=== PATIENT | female | born 1990 | race American Indian/Alaskan Native ===

== ENCOUNTER 2017-09-10 03:09 | Emergency (ER) | payer MEDICAID ==
[2017-09-10] MEDS ORDERED: TYLENOL PO ONE (03:40)
[2017-09-10] MEDS ORDERED: TYLENOL ONE (03:42)
--- NOTE | 2017-09-10 11:38 | Emergency Department Report ---
ED ENT HPI - General Chief complaint: Sore Throat Stated complaint: SORE THROAT, EARACHE Time Seen by Provider: 09/10/17 11:11 Source: patient Mode of arrival: Ambulatory Limitations: No Limitations - History of Present Illness Initial comments: PT states she is . PT states she is 12 weeks . PT states she has had URI symptoms (sore throat, nasal drainage, earache) for three days. PT states she does not know what to take. PT also states her PSYCHIATRIC NP has given her a RX for Pepcid and she is out. PT asking for refill of Pepcid. PT states she has seen her PSYCHIATRIC NP, she does not know of the name of the practice but offers that it is by a [email or web address] [facility]. PT does report vomiting twice a day with this and she states vomiting makes her throat hurt worse. MD complaint: sore throat -: Gradual, days(s) (three ) Location: R ear, throat Severity scale (0 -10): 4 Quality: sharp Consistency: constant Worsens with: swallowing, eating, other (vomiting ) Associated Symptoms: cough, pain with swallowing, sore throat, rhinorrhea. denies: fever - Related Data Previous Rx's Medication Instructions Recorded Last Taken Type Acetaminophen [Tylenol Extra 500 mg PO QID PRN #20 tablet 09/10/17 Unknown Rx Strength] Famotidine [Pepcid] 20 mg PO BID #28 tablet 09/10/17 Unknown Rx Promethazine [Phenergan TAB] 12.5 mg PO Q8HR PRN #8 tab 09/10/17 Unknown Rx diphenhydrAMINE [Benadryl CAP] 25 mg PO Q8HR PRN #12 capsule 09/10/17 Unknown Rx guaiFENesin [Robitussin] 200 mg PO QID PRN #1 bottle 09/10/17 Unknown Rx Allergies Allergy/AdvReac Type Severity Reaction Status Date / Time No Known Allergies Allergy Verified 07/05/15 23:34 ED Dental HPI - General Chief complaint: Sore Throat Stated complaint: SORE THROAT, EARACHE Time Seen by Provider: 09/10/17 11:11 Source: patient Mode of arrival: Ambulatory Limitations: No Limitations - Related Data Previous Rx's Medication Instructions Recorded Last Taken Type Acetaminophen [Tylenol Extra 500 mg PO QID PRN #20 tablet 09/10/17 Unknown Rx Strength] Famotidine [Pepcid] 20 mg PO BID #28 tablet 09/10/17 Unknown Rx Promethazine [Phenergan TAB] 12.5 mg PO Q8HR PRN #8 tab 09/10/17 Unknown Rx diphenhydrAMINE [Benadryl CAP] 25 mg PO Q8HR PRN #12 capsule 09/10/17 Unknown Rx guaiFENesin [Robitussin] 200 mg PO QID PRN #1 bottle 09/10/17 Unknown Rx Allergies Allergy/AdvReac Type Severity Reaction Status Date / Time No Known Allergies Allergy Verified 07/05/15 23:34 ED Review of Systems ROS: Stated complaint: SORE THROAT, EARACHE Other details as noted in HPI Comment: All other systems reviewed and negative Constitutional: denies: fever ENT: ear pain, throat pain, congestion Respiratory: cough. denies: shortness of breath Cardiovascular: denies: chest pain Gastrointestinal: nausea, vomiting. denies: abdominal pain Genitourinary: other (denies vaginal bleeding). denies: dysuria Neurological: headache (resolved ) ED Past Medical Hx - Past Medical History Previous Medical History?: No Hx Hypertension: No - Surgical History Past Surgical History?: Yes Additional Surgical History: tonsillectomy - Social History Smoking Status: Never Smoker Substance Use Type: None - Medications Home Medications: Home Medications Medication Instructions Recorded Confirmed Last Taken Type Acetaminophen [Tylenol Extra 500 mg PO QID PRN #20 tablet 09/10/17 Unknown Rx Strength] Famotidine [Pepcid] 20 mg PO BID #28 tablet 09/10/17 Unknown Rx Promethazine [Phenergan TAB] 12.5 mg PO Q8HR PRN #8 tab 09/10/17 Unknown Rx diphenhydrAMINE [Benadryl CAP] 25 mg PO Q8HR PRN #12 capsule 09/10/17 Unknown Rx guaiFENesin [Robitussin] 200 mg PO QID PRN #1 bottle 09/10/17 Unknown Rx ED Physical Exam - General Limitations: No Limitations General appearance: alert, in no apparent distress, obese - Head Head exam: Present: atraumatic, normocephalic, normal inspection - Eye Eye exam: Present: normal appearance, PERRL, EOMI. Absent: conjunctival injection - ENT ENT exam: Present: normal orophraynx, mucous membranes moist, TM's normal bilaterally, normal external ear exam, other (moderate amount of clear post nasal drainage ) - Expanded ENT Exam Expanded Mouth exam: Absent: drooling, trismus Throat exam: Negative: tonsillar erythema, tonsillomegaly, tonsillar exudate - Neck Neck exam: Present: normal inspection, full ROM. Absent: lymphadenopathy - Respiratory Respiratory exam: Present: normal lung sounds bilaterally. Absent: respiratory distress, wheezes, chest wall tenderness - Cardiovascular Cardiovascular Exam: Present: regular rate, normal rhythm, normal heart sounds - GI/Abdominal GI/Abdominal exam: Present: soft. Absent: tenderness, guarding, rebound - Extremities Exam Extremities exam: Present: normal inspection, full ROM - Back Exam Back exam: Present: normal inspection, full ROM. Absent: tenderness, CVA tenderness (R), CVA tenderness (L), paraspinal tenderness - Neurological Exam Neurological exam: Present: alert, oriented X3 - Psychiatric Psychiatric exam: Present: normal affect, normal mood - Skin Skin exam: Present: warm, dry, intact, normal color ED Course Vital Signs 09/10/17 09/10/17 03:38 12:55 Temperature 98.8 F 98.5 F Pulse Rate 107 H 97 H Respiratory 18 16 Rate Blood Pressure 157/92 157/84 [Right] O2 Sat by Pulse 98 100 Oximetry - Reevaluation(s) Reevaluation #1: 09/10/17 11:41 Pt has been tolerating po fluid and food while in ED. PT aware rapid strep negative. Pt's exam is not consistent with strep. 09/10/17 13:17 Pt's bp rechecked and second bp elevated. Dr Kearns aware and advises lab work as pt denies hx of htn. When pt aware of this, she states she recently had blood work with her PSYCHIATRIC NP office and she needs to leave to go to an OB/ FILM PROJECTOR OPERATOR appointment. PT aware she will need to sign out AMA. Pt aware of risks. PT has no questions at this time. - Pulse Oximetry Interpretation Digit-Finger Initial Pulse Oximetry Readin Actions Taken: none ED Medical Decision Making - Differential Diagnosis om, strep pharyngitis Critical Care Time: No Critical care attestation.: If time is entered above; I have spent that time in minutes in the direct care of this critically ill patient, excluding procedure time. ED Disposition Clinical Impression: Viral URI with cough Disposition: DC-07 LEFT AGAINST MED ADVICE Is pt being admited?: No Does the pt Need Aspirin: No Condition: Stable Instructions: Upper Respiratory Infection (ED) Additional Instructions: Rest Increase water OTC Normal Saline nasal spray Follow up with your OB/ FILM PROJECTOR OPERATOR today as scheduled - have your bp rechecked on follow up Follow up with PCP in 3-5 days Return to the ED if worsening or concerns Do no drink alcohol or drive after taking Phenergan or Benadryl Ask your PSYCHIATRIC NP or pharmacist before taking any OTC medication Prescriptions: Acetaminophen [Tylenol Extra Strength] 500 mg PO QID PRN #20 tablet PRN Reason: Pain diphenhydrAMINE [Benadryl CAP] 25 mg PO Q8HR PRN #12 capsule PRN Reason: Allergy Symptoms Famotidine [Pepcid] 20 mg PO BID #28 tablet guaiFENesin [Robitussin] 200 mg PO QID PRN #1 bottle PRN Reason: Cough Promethazine [Phenergan TAB] 12.5 mg PO Q8HR PRN #8 tab PRN Reason: Nausea Referrals: PRIMARY CARE, [Primary Care Provider] - 3-5 Days Forms: Work/School Release Form(ED) Time of Disposition: 13:21
[2017-09-10 12:57] VITALS: BP 157/84
== END 2017-09-10 13:30 | disposition left against medical advice (07) ==
LOC: ED 03:09
DX: O26.891 Other specified pregnancy related conditions, first trimester (principal); J06.9 Acute upper respiratory infection, unspecified; Z3A.12 12 weeks gestation of pregnancy
CPT/HCPCS: 87116; 87430; 99282